=== PATIENT | male | born 1965 | race Caucasian/White ===

== ENCOUNTER 2018-07-04 09:08 | Observation (INO) | payer BC ==
[2018-07-04] MEDS ORDERED: NITROGLYCERIN 0.4 MG TAB SL PRN (09:23)
[2018-07-04] MEDS ORDERED: METOPROLOL TARTRATE 5 MG/5 ML SOL IV ONE ×3 (09:25→09:41)
[2018-07-04] MEDS: METOPROLOL TARTRATE 5 MG/5 ML SOL IV PRN ×3 (09:28→09:42)
[2018-07-04 09:29] LABS: BASOPHILS % (AUTO) 1 % (0-3); EOSINOPHILS % (AUTO) 1 % (0-9); HEMATOCRIT 48 % (39-53); HEMOGLOBIN 16.4 gm/dl (13.5-17.7); LYMPHOCYTES % (AUTO) 18.6 % (10-50); MEAN CORPUSCULAR HEMOGLOBIN 30.5 pg (27.0-32.0); MEAN CORPUSCULAR VOLUME 90 fL (80-100); MONOCYTES % (AUTO) 10.4 % (0-12); NEUTROPHILS % (AUTO) 69.1 % (37-80)
[2018-07-04] MEDS: SODIUM CHLORIDE 0.9% FLUSH 10 ML SOL IV PRN ×3 (09:30→09:42)
[2018-07-04 09:39] LABS: INR 0.93 (0.86-1.12)
[2018-07-04 09:44] LABS: CALCIUM 8.4 mg/dl (8.5-10.1); CARBON DIOXIDE 27.9 mEq/L (21-32); CREATININE 1.26 mg/dl (0.80-1.30); POTASSIUM 4.3 mMol/L (3.5-5.1); TROP I 0.072 ng/ml (0.000-0.056)
[2018-07-04] MEDS ORDERED: DILTIAZEM ER 120 MG C24 ONE (10:00)
[2018-07-04] MEDS: DILTIAZEM ER 120 MG C24 PO SCH (10:04)
[2018-07-04] MEDS: ASPIRIN 325 MG TAB PO SCH (11:48)
[2018-07-04] MEDS ORDERED: DILTIAZEM 5 MG/ML SOL IV ONE ×3 (13:59→14:57)
[2018-07-04] MEDS ORDERED: SODIUM CHLORIDE 0.9% 500 ML 500 ML IV ONE (15:30)
[2018-07-05] MEDS: SODIUM CHLORIDE 0.9% FLUSH 10 ML SOL IV SCH ×2 (06:03→08:38)
[2018-07-05] MEDS: ASPIRIN 325 MG TAB PO SCH (08:39)
[2018-07-05] MEDS: DILTIAZEM ER 120 MG C24 PO SCH (08:39)
[2018-07-05 10:10] VITALS: BP 132/87; PULSE 82; RESP 18; TEMP 97.7; O2SAT 96
== END 2018-07-05 09:37 | disposition home or self-care (01) ==
LOC: ED 09:08 → ACUTE CARE 10:07
PROVIDERS: ADMIT Emergency Medicine; ATTEND Family Medicine
DX: I48.91 Unspecified atrial fibrillation (principal); R79.89 Other specified abnormal findings of blood chemistry
CPT/HCPCS: 36415; 71045; 80048; 82550; 84484; 85025; 85610; 85730; 93005; 93012; 96374; 99219; 99285; A9270-GY; J3490

== ENCOUNTER 2018-09-29 08:26 | Day surgery (SDC) | payer BC ==
[~2018-09-29 08:26] MED LIST: LIDOCAINE HCL 1% MPF 30 SOL ONE; PROPOFOL 500 MG/50 ML EMU IV ONE
[2018-09-29 09:42] VITALS: RESP 20
[2018-09-29 10:03] VITALS: TEMP 97.4
[2018-09-29 10:05] VITALS: BP 116/94; PULSE 95; O2SAT 97
== END 2018-09-29 10:10 | disposition home or self-care (01) ==
LOC: SURG 08:26
PROVIDERS: ATTEND Surgery
DX: Z12.11 Encounter for screening for malignant neoplasm of colon (principal)
CPT/HCPCS: J2001; J2704